=== PATIENT | female | born 1955 | race Two or more races ===

== ENCOUNTER 2017-03-02 10:04 | Outpatient (CLI) | payer OTHER ==
[~2017-03-02 10:04] MED LIST: CALAN80 MG; COZAAR50 MG; SYNTHROID88 MCG; VOLTAREN-XR100 MG PO
== END 2017-03-02 10:28 | disposition home or self-care (01) ==
LOC: RAD 501 10:04
DX: M12.9 Arthropathy, unspecified (principal); M19.90 Unspecified osteoarthritis, unspecified site; M46.47 Discitis, unspecified, lumbosacral region

== ENCOUNTER 2019-03-06 04:35 | Day surgery (SDC) | payer OTHER ==
[~2019-03-06 04:35] MED LIST changes: +CALAN PO; +COZAAR25 MG PO; +DEXILANT60 MG PO; +DICLOFENAC SODI50 MG PO; +LEVO-T100 MCG PO; +MEGARED OMEGA-1 EAC2 PO; +NORFLEX100MG PO
== END 2019-03-06 14:25 | disposition home or self-care (01) ==
LOC: CIR.AMB 04:35
DX: K80.10 Calculus of gallbladder with chronic cholecystitis without obstruction (principal)

== ENCOUNTER 2019-07-12 13:27 | Outpatient (CLI) | payer OTHER ==
[~2019-07-12] VITALS: Ht 154.9 cm; Wt 70.3 kg
[2019-07-12] MEDS ORDERED: PRILOSEC OTC20 MG PO (15:01)
[2019-07-12] MEDS ORDERED: PEPCID AC20 MG PO (15:02)
[2019-07-12] MEDS ORDERED: FLONASE16 GM NASAL (15:03)
[2019-07-12] MEDS ORDERED: NEILMED SINUS1 EACH NASAL (15:03)
[2019-07-12] MEDS ORDERED: SINGULAIR 10MG10 MG PO (15:04)
== END 2019-07-12 15:49 | disposition home or self-care (01) ==
LOC: OFIC 805 13:27
PROVIDERS: ATTEND Otolaryngology
DX: K21.0 Gastro-esophageal reflux disease with esophagitis (principal); J38.2 Nodules of vocal cords; R09.82 Postnasal drip; J30.89 Other allergic rhinitis

== ENCOUNTER 2019-08-09 08:45 | Outpatient (CLI) | payer OTHER ==
[~2019-08-09 08:45] MED LIST changes: +FLONASE16 GM NASAL; +NEILMED SINUS1 EACH NASAL; +PEPCID AC20 MG PO; +PRILOSEC OTC20 MG PO; +SINGULAIR 10MG10 MG PO
[2019-08-09] MEDS ORDERED: FLONASE16 GM NASAL (10:45)
[2019-08-09] MEDS ORDERED: SINGULAIR 10MG10 MG PO (10:45)
[2019-08-09] MEDS ORDERED: PRILOSEC OTC20 MG PO (10:45)
[2019-08-09] MEDS ORDERED: PEPCID AC20 MG PO (10:45)
[2019-08-09] MEDS ORDERED: NEILMED SINUS1 EACH NASAL (10:45)
== END 2019-08-10 08:49 | disposition home or self-care (01) ==
LOC: OFIC 805 08:45
PROVIDERS: ATTEND Otolaryngology
DX: K21.0 Gastro-esophageal reflux disease with esophagitis (principal); R09.82 Postnasal drip; J30.89 Other allergic rhinitis; H61.23 Impacted cerumen, bilateral; K14.6 Glossodynia

== ENCOUNTER 2019-10-31 08:42 | Outpatient (CLI) | payer OTHER | END 2019-10-31 10:00 | disposition home or self-care (01) | LOC: OFIC 805 08:42 | PROVIDERS: ATTEND Otolaryngology | DX: R13.19 Other dysphagia (principal); J02.8 Acute pharyngitis due to other specified organisms; R09.82 Postnasal drip ==

== ENCOUNTER → 2019-10-31 10:11 | Outpatient (CLI) | payer OTHER | END | disposition home or self-care (01) | LOC: LAB 10:11 | PROVIDERS: ATTEND Otolaryngology | DX: J03.80 Acute tonsillitis due to other specified organisms (principal) ==

== ENCOUNTER → 2019-11-28 | Outpatient (CLI) | payer OTHER | END | disposition home or self-care (01) | LOC: OFIC 805 11-07 08:45 | PROVIDERS: ATTEND Otolaryngology | DX: R05 Cough (principal); B96.0 Mycoplasma pneumoniae [M. pneumoniae] as the cause of diseases classified elsewhere ==

== ENCOUNTER 2020-02-06 09:38 | Outpatient (CLI) | payer OTHER | END 2020-02-06 09:47 | disposition home or self-care (01) | LOC: LAB 09:38 | PROVIDERS: ATTEND Radiology Diagnostic Radiology | DX: R10.30 Lower abdominal pain, unspecified (principal) ==

== ENCOUNTER 2020-02-11 09:34 | Outpatient (CLI) | payer OTHER | END 2020-02-11 09:53 | disposition home or self-care (01) | LOC: TOM 09:34 | PROVIDERS: ATTEND Internal Medicine Gastroenterology | DX: K76.0 Fatty (change of) liver, not elsewhere classified (principal); K57.30 Diverticulosis of large intestine without perforation or abscess without bleeding; K44.9 Diaphragmatic hernia without obstruction or gangrene ==

== ENCOUNTER 2022-09-01 07:58 | Outpatient (CLI) | payer OTHER | END 2022-09-01 08:11 | disposition home or self-care (01) | LOC: SONOGRAMA 07:58 | DX: K76.0 Fatty (change of) liver, not elsewhere classified (principal) ==

== ENCOUNTER → 2023-08-12 | Outpatient (CLI) | payer OTHER | END | disposition home or self-care (01) | LOC: LAB 11:56 | PROVIDERS: ATTEND Internal Medicine Infectious Disease | DX: Z87.01 Personal history of pneumonia (recurrent) (principal); J20.9 Acute bronchitis, unspecified; J18.9 Pneumonia, unspecified organism ==

== ENCOUNTER 2023-10-14 12:07 | Outpatient (CLI) | payer OTHER | END 2023-10-14 12:14 | disposition home or self-care (01) | LOC: RAD 12:07 | DX: M54.2 Cervicalgia (principal); M54.89 Other dorsalgia ==

== ENCOUNTER 2023-12-12 08:13 | Outpatient (CLI) | payer OTHER | END 2023-12-12 08:22 | disposition home or self-care (01) | LOC: RAD 08:13 | PROVIDERS: ATTEND Internal Medicine Cardiovascular Disease | DX: M12.9 Arthropathy, unspecified (principal); M25.511 Pain in right shoulder | CPT/HCPCS: 72141 ==

== ENCOUNTER 2024-03-27 11:33 | Outpatient (CLI) | payer OTHER | END 2024-03-27 11:38 | disposition home or self-care (01) | LOC: RAD 11:33 | PROVIDERS: ATTEND Internal Medicine Cardiovascular Disease | DX: J40 Bronchitis, not specified as acute or chronic (principal); J44.0 Chronic obstructive pulmonary disease with (acute) lower respiratory infection ==

== ENCOUNTER → 2024-08-29 10:52 | Outpatient (CLI) | payer OTHER ==
[~2024-08-29 10:52] MED LIST changes: +MEDROLPACK PO; +ZANAFLEX2 MG PO
== END | disposition home or self-care (01) ==
LOC: NUCLEAR 10:52
PROVIDERS: ATTEND General Practice
DX: E78.00 Pure hypercholesterolemia, unspecified (principal)

== ENCOUNTER 2024-09-03 11:39 | Outpatient (CLI) | payer OTHER | END 2024-09-03 11:49 | disposition home or self-care (01) | LOC: RAD 11:39 | PROVIDERS: ATTEND General Practice | DX: E78.00 Pure hypercholesterolemia, unspecified (principal); K76.0 Fatty (change of) liver, not elsewhere classified ==

== ENCOUNTER 2024-12-13 11:56 | Outpatient (CLI) | payer OTHER | END 2024-12-13 11:58 | disposition home or self-care (01) | LOC: RAD 11:56 | PROVIDERS: ATTEND General Practice | DX: R05.9 Cough, unspecified (principal); R50.9 Fever, unspecified ==